=== PATIENT | male | born 1965 | race Two or more races ===

== ENCOUNTER 2020-09-16 07:38 | Day surgery (SDC) | payer OTHER ==
[~2020-09-16 07:38] MED LIST: CARVEDILOL12.5 MG; DORZOLAMIDE-TIM10 ML OP; HYDRALAZINE HCL25 MG PO; PRESERVISION A1 EAC3 PO; RESTORIL30 M1 PO; ZYPREXA10 MG PO
== END 2020-09-16 18:15 | disposition home or self-care (01) ==
LOC: CIR.AMB 07:38
PROVIDERS: ATTEND Colon & Rectal Surgery
DX: K64.4 Residual hemorrhoidal skin tags (principal); K64.8 Other hemorrhoids; Z20.822 Contact with and (suspected) exposure to COVID-19